=== PATIENT | female | born 1990 | race African-American/Black ===

== ENCOUNTER 2024-02-08 13:07 | Emergency (ER) | payer BC ==
[2024-02-08] MEDS ORDERED: ACETAMINOPHEN INJECTION 100 ML ONE (14:09)
[2024-02-08] MEDS ORDERED: ONDANSETRON 4 MG/2 ML VIAL ONE ×2 (14:10→15:39)
[2024-02-08 14:11] VITALS: BMI 19.9
[2024-02-08 14:12] LABS: BASO % 0.6 % (0-2.0); HEMATOCRIT 38.7 % (32.4-45.2); HEMOGLOBIN 11.9 GM/dL (10.7-15.3); LYMPH % 8.7 % (8-40); MCH 22.3 pg (25.7-33.7); MCHC 30.7 g/dl (32.0-36.0); MEAN CELL VOLUME 72.4 fl (80-96); MEAN PLT VOLUME 8.9 fl (7.5-11.1); MONO % 4.3 % (3.8-10.2); NEUT % 86.4 % (42.8-82.8); PLATELET COUNT 314 10^3/uL (134-434); RBC 5.34 M/mm3 (3.60-5.2); RDW 18.9 % (11.6-15.6)
[2024-02-08 14:18] LABS: INR 0.96 (0.83-1.09)
[2024-02-08] MEDS ORDERED: MORPHINE SULFATE 2 MG/ML SYRINGE ONE ×2 (14:19→17:05)
[2024-02-08 14:21] LABS: ACTIVATED PTT 28.4 SECONDS (25.2-36.5)
[2024-02-08] MEDS: ONDANSETRON 4 MG/2 ML VIAL IVPUSH ONE ×2 (14:26→15:43)
[2024-02-08] MEDS: ACETAMINOPHEN 1000 MG/100 ML BAG IVPB ONE (14:27)
[2024-02-08 14:29] LABS: POTASSIUM 3.7 mmol/L (3.5-5.1)
[2024-02-08 14:31] LABS: CALCIUM 9.8 mg/dL (8.5-10.1)
[2024-02-08] MEDS: morphine CARPU-JECT 2 MG/1 ML DISP.SYRIN IVPUSH ONE ×2 (14:31→17:10)
[2024-02-08 14:32] LABS: ALBUMIN 4.8 g/dl (3.4-5.0); BLOOD UREA NITROGEN 13.5 mg/dL (7-18)
[2024-02-08 14:35] LABS: CREATININE 0.9 mg/dL (0.55-1.3)
[2024-02-08 14:38] LABS: BILIRUBIN,TOTAL 0.4 mg/dL (0.2-1); TOT PROT 8.6 g/dl (6.4-8.2)
[2024-02-08 14:41] LABS: LACTIC ACID 2.3 mmol/L (0.4-2.0)
[2024-02-08] MEDS ORDERED: METOCLOPRAMIDE HCL INJECTION 10 MG/2 ML VIAL ONE (16:48)
[2024-02-08] MEDS: METOCLOPRAMIDE HCL INJECTION 10 MG/2 ML VIAL IVPB ONE (17:05)
[2024-02-08 19:02] VITALS: BP 111/61; PULSE 68; RESP 18; TEMP 98.4
[2024-02-08 19:15] LABS: EPI CELLS 3 /uL (0-25.1); HYALINE CASTS 0 /uL (0-3.1); URINE APPEARANCE CLEAR; URINE BACTERIA 6 /uL (0-1359); URINE BILIRUBIN NEGATIVE (NEGATIVE); URINE COLOR YELLOW; URINE GLUCOSE (UA) NEGATIVE (NEGATIVE); URINE KETONE 1+ (NEGATIVE); URINE LEUK ESTERASE NEGATIVE (NEGATIVE); URINE NITRITE NEGATIVE (NEGATIVE); URINE PROTEIN 1+ (NEGATIVE); URINE RBC 35 /uL (0-23.9); URINE UROBILINOGEN 0.2 mg/dL (0.2-1.0); URINE WBC 2 /uL (0-25.8)
== END 2024-02-08 21:11 | disposition home or self-care (01) ==
LOC: JER 13:07
PROC: 3E033GC Introduction of Other Therapeutic Substance into Peripheral Vein, Percutaneous Approach (ICD-10-PCS; principal; 2024-02-08)
PROC: 3E033GC Introduction of Other Therapeutic Substance into Peripheral Vein, Percutaneous Approach (ICD-10-PCS; 2024-02-08)
PROC: 3E033NZ Introduction of Analgesics, Hypnotics, Sedatives into Peripheral Vein, Percutaneous Approach (ICD-10-PCS; 2024-02-08)
PROC: 3E033NZ Introduction of Analgesics, Hypnotics, Sedatives into Peripheral Vein, Percutaneous Approach (ICD-10-PCS; 2024-02-08)
PROC: 3E033GC Introduction of Other Therapeutic Substance into Peripheral Vein, Percutaneous Approach (ICD-10-PCS; 2024-02-08)
DX: R10.31 Right lower quadrant pain (principal); R10.32 Left lower quadrant pain; N93.9 Abnormal uterine and vaginal bleeding, unspecified; R11.2 Nausea with vomiting, unspecified; R42 Dizziness and giddiness
CPT/HCPCS: 36415; 74177-TC; 76830-TC; 80053; 81003; 83605; 84703; 85025; 85610; 85730; 86850; 86900; 86901; 87086; 99285-25; Q9967

== ENCOUNTER 2024-07-25 10:44 | Emergency (ER) | payer BC ==
[2024-07-25 10:54] VITALS: BP 137/83; PULSE 53; RESP 18; TEMP 98.7; BMI 19.9
[2024-07-25] MEDS ORDERED: ONDANSETRON *ODT* 4 MG TABLET ONE (11:38)
[2024-07-25] MEDS ORDERED: ACETAMINOPHEN 500 MG TABLET (FP) ONE (11:38)
[2024-07-25] MEDS: ONDANSETRON *ODT* 4 MG TABLET SL ONE (11:40)
[2024-07-25] MEDS: ACETAMINOPHEN 500 MG TABLET (FP) PO ONE (11:40)
[2024-07-25] MEDS ORDERED: BUPIVACAINE HCL/PF 0.5% (5MG/ML) 10 ML VIAL ONE (11:43)
[2024-07-25] MEDS ORDERED: LIDOCAINE HCL 2% (20ML MULTI-DOSE VIAL) ONE (11:46)
[2024-07-25] MEDS: BUPIVACAINE HCL 0.25% 125 MG/50 ML VIAL INF ONE (11:47)
[2024-07-25] MEDS: LIDOCAINE HCL 2% (20ML MULTI-DOSE VIAL) INF ONE (11:47)
== END 2024-07-25 12:20 | disposition home or self-care (01) ==
LOC: JERFT 10:44
PROC: 3E0T3BZ Introduction of Anesthetic Agent into Peripheral Nerves and Plexi, Percutaneous Approach (ICD-10-PCS; principal; 2024-07-25)
DX: R51.9 Headache, unspecified (principal); K02.9 Dental caries, unspecified; R11.0 Nausea; R63.8 Other symptoms and signs concerning food and fluid intake
CPT/HCPCS: 99283-25; Q0162